=== PATIENT | female | born 1965 | race Caucasian/White ===

== ENCOUNTER 2017-08-11 10:20 | Emergency (ER) | payer OTHER ==
[~2017-08-11] VITALS: Ht 165.1 cm; Wt 55.2 kg
[~2017-08-11 10:20] MED LIST: AUGMENTIN500TAB PO; DIFLUCAN150 MG PO; FLONASE NASAL50 MCG; MEDDOSEPAK PO; MUCINEX600 MG; NO HOME MEDS; TYLENOL COL1 PO; ZYRTEC10 M5 PO
[2017-08-11] MEDS ORDERED: DEXAMETHASON1 MG PO (10:35)
[2017-08-11] MEDS ORDERED: OXYCODONE HCL5 MG PO (10:36)
[2017-08-11 11:32] VITALS: BP 126/80
== END 2017-08-11 11:40 | disposition home or self-care (01) | DRG 563 ==
LOC: ED 10:20
PROC: 2W3CX1Z Immobilization of Right Lower Arm using Splint (ICD-10-PCS; principal; 2017-08-11)
DX: S52.101A Unspecified fracture of upper end of right radius, initial encounter for closed fracture (principal); C90.00 Multiple myeloma not having achieved remission; X50.0XXA Overexertion from strenuous movement or load, initial encounter; Y93.89 Activity, other specified; Y92.89 Other specified places as the place of occurrence of the external cause